=== PATIENT | male | born 1975 | race Caucasian/White ===

== ENCOUNTER 2024-06-07 16:58 | Emergency (ER) | payer SELFPAY ==
[2024-06-07] VITALS (9 sets, daily range): BP systolic 79–144; BP diastolic 36–76; PULSE 100–189; RESP 18–32; TEMP 37.6–37.7; O2SAT 95–98; BMI 25.0
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
--- NOTE | 2024-06-07 17:10 | ECG_ITS ---
APPROVED REPORT Exam: Resting ECG HR:129 bpm ECG Measurements Heart Rate 129 AXES ID 131 P 78 QRSd 96 QRS 75 QT 297 T 85 QTc [address] depression without elevations Electronically signed by : GABRIELA ISABEL, 06/08/2024 14:56:21
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
[2024-06-07] MEDS: 0.9 % SODIUM CHLORIDE 1000ML 1,000 ML 999 ML IV (17:46)
[2024-06-07] MEDS: KETOROLAC 30MG/ML VIAL 15 MG IV (17:46)
--- NOTE | 2024-06-07 18:00 | PC.NURSE ---
FSBS is 218 at 1659.
[2024-06-07 18:05] LABS: Basophils # 0.1 K/mm3 (0-0.2); Basophils % 0.3 % (0.1-2.0); Eosinophils # 0.1 K/mm3 (0.0-0.4); Eosinophils % 0.2 % (0.1-12.0); Hematocrit 33.3 % (42.0-52.0); Hemoglobin 11.3 g/dL (14.1-18.0); Lymphocytes # 0.7 K/mm3 (0.7-4.5); Lymphocytes % 3.4 % (10-50); Mean Corpuscular HGB Conc 33.9 g/dL (31.8-35.4); Mean Corpuscular Hemoglobin 27.3 pg (27.0-31.2); Mean Corpuscular Volume 80.4 fl (80-94); Mean Platelet Volume 10.8 fl (7.4-10.4); Monocytes # 0.3 K/mm3 (0.1-1.0); Monocytes % 1.3 % (1.7-9.3); Neutrophils # 19.1 K/mm3 (1.8-7.8); Neutrophils % 93.5 % (37.0-80.0); Platelet Count 168 K/mm3 (142-424); Red Blood Count 4.14 M/mm3 (4.60-6.20); White Blood Count 20.4 K/mm3 (4.8-10.8)
[2024-06-07 18:07] LABS: VBG HCO3 23.1 mmol/L (23-30); VBG Oxygen Saturation 63.7 % (50-70); VBG PCO2 34.6 mmol/L (35-51); VBG PH 7.44 mmol/L (7.31-7.41); VBG Total CO2 24.2 mmol/L (23-27)
[2024-06-07 18:09] LABS: Lactate Venous 2.9 mmol/L (0.4-2.0)
[2024-06-07] MEDS: IOPAMIDOL-370 (76%);100ML BOTTLE 80 ML IV (18:10)
[2024-06-07] MEDS: 0.9 % SODIUM CHLORIDE 50 ML VIAL IV (18:10)
[2024-06-07 18:11] LABS: MANUAL DIFFERENTIAL MANUAL DIFFERENTIAL (MANUAL DIFF)
[2024-06-07] MEDS: SODIUM CHLORIDE 0.9% 10ML SYR (RAD ONLY) 10 ML IV (18:11)
[2024-06-07 18:12] LABS: Albumin Level 2.8 g/dl (3.5-5.0); Chloride 94 mmol/L (98-107); Potassium 4.2 mmoL/L (3.5-5.1); Sodium 125 mmol/L (136-145)
[2024-06-07 18:14] LABS: Alanine Aminotransferase 49 U/L (12-78); Blood Urea Nitrogen 26 mg/dl (9-20); Creatinine Clearance Estimated 89 mL/min (50-200); Estimated Glomerular Filt Rate 64 ml/min (>60); GFR (African American) 77 ML/MIN (>60)
[2024-06-07 18:15] LABS: Albumin/Globulin Ratio 0.7 (1.1-1.8); Alkaline Phosphatase 115 U/L (38-126); Anion Gap 10.2 mEq/L (5-15); Aspartate Amino Transferase 49 U/L (17-59); Bilirubin,Total 1.5 mg/dl (0.2-1.3); Calcium 8.4 mg/dl (8.4-10.2); Carbon Dioxide 25 mmol/L (22.0-30.0); Globulin 4.3 g/dL (1.3-3.2); Glucose 196 mg/dl (74-100); Lipase 39 U/L (23-300); Magnesium 1.8 mg/dl (1.6-2.3); Total Protein,Serum 7.1 g/dl (6.3-8.2)
[2024-06-07 18:25] LABS: NT Pro Brain Natriuretic Pep. 2340 pg/mL (0-125)
[2024-06-07 18:31] LABS: Troponin I 2.33 ng/ml (0.00-0.034)
[2024-06-07 18:32] LABS: Procalcitonin 3.45 ng/mL (0.0-2.0); T4 (Thyroxine) 10.2 ug/dl (5.53-11.0)
[2024-06-07 18:36] LABS: INR 1.18 (0.9-1.1)
[2024-06-07 18:46] LABS: Thyroid Stimulating Hormone 0.42 uIU/mL (0.465-4.68)
[2024-06-07] MEDS: LACTATED RINGERS 1000ML 2,400 ML 1200 ML IV (18:47)
[2024-06-07 18:55] LABS: Eosinophils % 1 % (0-3); Ethyl Alcohol < 10 mg/dl (0-10); Lymphocytes % 3 % (10-50); Microcytosis 1+; Monocytes % 2 % (2-9); Neutrophils % 94 % (42-76); Platelet Estimate Normal; Total Cells Counted 100
--- NOTE | 2024-06-07 18:59 | PC.NURSE ---
DR ISABEL SPEAKING WITH FOR TRAUMA TRANSFER
--- NOTE | 2024-06-07 19:01 | PC.NURSE ---
AIR METHODS ACCEPTED FLIGHT TO ETA 22 MINUTES
[2024-06-07 19:04] LABS: Coronavirus 19, PCR Not Detected (NotDetected); Influenza A, PCR Not Detected (NotDetected); Influenza B, PCR Not Detected (NotDetected)
[2024-06-07 19:12] LABS: Hemoglobin A1C 6.4 % (4.0-6.0)
[2024-06-07] MEDS: DALBAVANCIN HCL 1,500 MG in DEXTROSE 5 % IN WATER 250 ML 500 MG IV (19:15)
[2024-06-07 19:18] LABS: Lactic Acid 2.4 mmol/L (0.7-2.1)
--- NOTE | 2024-06-07 19:30 | PC.NURSE ---
REPORT GIVEN TO JOHNODS
[2024-06-07] MEDS: ASPIRIN 81MG CHEWABLE TABLET 324 MG PO (19:44)
[2024-06-07 19:47] LABS: Amphetamine/Metha Screen,Urine Negative ng/ml (<1000); Barbiturates Screen,Urine Negative ng/ml (<200)
[2024-06-07 19:48] LABS: Benzodiazepines Screen,Urine Negative ng/ml (<200)
[2024-06-07 19:49] LABS: Cannabinoid Screen,Urine Negative ng/ml (<50); Cocaine Screen,Urine Negative ng/ml (<300)
[2024-06-07 19:50] LABS: Methadone Screen,Urine Negative ng/ml (<300)
[2024-06-07 19:51] LABS: Opiate Screen,Urine Positive ng/ml (<300); Phencyclidine Screen,Urine Negative ng/ml (<25)
[2024-06-07 22:10] LABS: Reflex Lactic Add Lactic Reflex
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
--- NOTE | 2024-06-11 11:05 | PC.NURSE ---
BLOOD CULTURE FAXED TO [phone]
== END 2024-06-07 19:42 | disposition short-term general hospital (02) ==
PROVIDERS: Emergency Provider Emergency Medicine
DX: D73.5 Infarction of spleen (principal); N28.0 Ischemia and infarction of kidney; I63.9 Cerebral infarction, unspecified; A41.9 Sepsis, unspecified organism; I26.90 Septic pulmonary embolism without acute cor pulmonale; R79.89 Other specified abnormal findings of blood chemistry; R07.9 Chest pain, unspecified; R50.9 Fever, unspecified; M79.10 Myalgia, unspecified site; R53.1 Weakness; R10.84 Generalized abdominal pain; R11.0 Nausea; V89.0XXA Person injured in unspecified motor-vehicle accident, nontraffic, initial encounter; Y93.89 Activity, other specified; Y92.89 Other specified places as the place of occurrence of the external cause
CPT/HCPCS: 70450; 71275; 72125; 74174; 80053; 80307; 80320; 82803; 83036; 83605; 83690; 83735; 83880; 84145; 84436; 84443; 84484; 85007; 85025; 85027; 85610; 85730; 87040; 87077; 87186; 87636; 93005; 96361; 96365; 96374; 99291; G0480; J0875; J1885; J7030; J7060; J7120; Q9967

== ENCOUNTER 2024-09-04 15:29 | Emergency (ER) | payer SELFPAY ==
[2024-09-04] VITALS (10 sets, daily range): BP systolic 161–186; BP diastolic 65–107; PULSE 61–95; RESP 11–20; TEMP 36.7–37.2; O2SAT 94–99; BMI 23.0; BMI 31.1
--- NOTE | 2024-09-04 15:39 | ECG_ITS ---
APPROVED REPORT Exam: Resting ECG HR:62 bpm ECG Measurements Heart Rate 62 AXES MS 168 P 62 QRSd 109 QRS 53 QT 249 T 0 QTc 254 Conclusion Sinus rhythm Nonspecific electrical change in V2. No obvious acute ischemic change Electronically signed by : GABRIELA ISABEL, 09/06/2024 12:19:56
[2024-09-04] MEDS: LACTATED RINGERS 1000ML 1,000 ML 999 ML IV (15:40)
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
--- NOTE | 2024-09-04 15:50 | PC.NURSE ---
Manual blood pressure is 154/90.
[2024-09-04 15:52] LABS: VBG Base Excess 1.7 mmol/L (-2.4-2.3); VBG HCO3 26.5 mmol/L (23-30); VBG Oxygen Saturation 86.6 % (50-70); VBG PCO2 43.7 mmol/L (35-51); VBG PO2 46.5 mmol/L (28-40); VBG Total CO2 27.8 mmol/L (23-27)
[2024-09-04 15:56] LABS: Basophils # 0.1 K/mm3 (0-0.2); Basophils % 0.7 % (0.1-2.0); Eosinophils # 0.3 K/mm3 (0.0-0.4); Eosinophils % 3.6 % (0.1-12.0); Hematocrit 42.1 % (42.0-52.0); Hemoglobin 13.6 g/dL (14.1-18.0); Lymphocytes # 1.2 K/mm3 (0.7-4.5); Lymphocytes % 14.8 % (10-50); Mean Corpuscular HGB Conc 32.3 g/dL (31.8-35.4); Mean Corpuscular Hemoglobin 26.7 pg (27.0-31.2); Mean Corpuscular Volume 82.7 fl (80-94); Mean Platelet Volume 9.1 fl (7.4-10.4); Monocytes # 0.4 K/mm3 (0.1-1.0); Monocytes % 4.8 % (1.7-9.3); Neutrophils # 6.1 K/mm3 (1.8-7.8); Neutrophils % 75.7 % (37.0-80.0); Platelet Count 238 K/mm3 (142-424); Red Blood Count 5.09 M/mm3 (4.60-6.20); White Blood Count 8.1 K/mm3 (4.8-10.8)
[2024-09-04 16:03] LABS: Albumin Level 4.2 g/dl (3.5-5.0); Chloride 101 mmol/L (98-107); Sodium 138 mmol/L (136-145)
[2024-09-04 16:04] LABS: Potassium 3.5 mmoL/L (3.5-5.1)
[2024-09-04 16:05] LABS: Activated Partial Thrombo Time 25.8 seconds (22.8-30.6); INR 0.97 (0.9-1.1); Prothrombin Time 10.9 seconds (10.1-12.5)
[2024-09-04 16:06] LABS: Alanine Aminotransferase 17 U/L (12-78); Albumin/Globulin Ratio 1.2 (1.1-1.8); Alkaline Phosphatase 108 U/L (38-126); Anion Gap 10.5 mEq/L (5-15); Aspartate Amino Transferase 35 U/L (17-59); Bilirubin,Total 0.9 mg/dl (0.2-1.3); Blood Urea Nitrogen 7 mg/dl (9-20); Carbon Dioxide 30 mmol/L (22.0-30.0); Estimated Glomerular Filt Rate 102 ml/min (>60); GFR (African American) 123 ML/MIN (>60); Globulin 3.5 g/dL (1.3-3.2); Total Protein,Serum 7.7 g/dl (6.3-8.2)
[2024-09-04 16:07] LABS: Calcium 9.7 mg/dl (8.4-10.2); Glucose 130 mg/dl (74-100)
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
[2024-09-04 16:12] LABS: Ethyl Alcohol < 10 mg/dl (0-10)
[2024-09-04] MEDS: MAGNESIUM SULFATE IN WATER 2 GM/50 ML PIGGYBACK IV (16:21)
[2024-09-04 17:03] LABS: Troponin I < 0.01 ng/ml (0.00-0.034)
[2024-09-04] MEDS: IOPAMIDOL-370 (76%);100ML BOTTLE 160 ML IV (17:25)
[2024-09-04] MEDS: 0.9 % SODIUM CHLORIDE 50 ML VIAL 100 ML IV (17:25)
[2024-09-04] MEDS: SODIUM CHLORIDE 0.9% 10ML SYR (RAD ONLY) 10 ML IV (17:25)
[2024-09-04 18:01] LABS: Microscopic, Urine URINE MICROSCOPIC (MICROSCOPIC)
[2024-09-04 18:08] LABS: Appearance,Urine CLEAR (Clear); Bilirubin,Urine Negative (Negative); Blood, Urine TRACE-L (Negative); Color,Urine YELLOW (Yellow); Glucose,Urine (UA) Negative (Negative); Ketones,Urine Negative (Negative); Leukocyte Esterase,Urine Negative (Negative); Nitrate,Urine Negative (Negative); PH,Urine 7.5 (5.0-8.5); Protein,Urine Negative (Negative)
[2024-09-04 18:25] LABS: Benzodiazepines Screen,Urine Negative ng/ml (<200)
[2024-09-04 18:26] LABS: Amphetamine/Metha Screen,Urine Negative ng/ml (<1000)
[2024-09-04 18:27] LABS: Barbiturates Screen,Urine Negative ng/ml (<200); Cannabinoid Screen,Urine Positive ng/ml (<50)
[2024-09-04 18:28] LABS: Cocaine Screen,Urine Negative ng/ml (<300); Methadone Screen,Urine Positive ng/ml (<300)
[2024-09-04 18:29] LABS: Opiate Screen,Urine Positive ng/ml (<300)
[2024-09-04 18:30] LABS: Phencyclidine Screen,Urine Negative ng/ml (<25)
--- NOTE | 2024-09-04 18:31 | PC.NURSE ---
Calling [facility] for transfer for possible central cord syndrome
--- NOTE | 2024-09-04 18:32 | PC.NURSE ---
Called [facility] per Dr Buckley about transferring this pt due to upper neck and back pain and is concern for Central Cord Syndrome.. [facility] advised that they would call us back
--- NOTE | 2024-09-04 18:51 | PC.NURSE ---
Dr. Buckley is on the phone with .
--- NOTE | 2024-09-04 18:51 | PC.NURSE ---
Collected second trop collected and sent [facility]CS[facility] at bedside
--- NOTE | 2024-09-04 19:27 | PC.NURSE ---
Called report to Sonja Bartholomew RN
[2024-09-04] MEDS: HYDROMORPHONE 2MG/ML SYRINGE 1 MG IV (20:21)
[2024-09-04 20:31] LABS: Troponin I < 0.01 ng/ml (0.00-0.034)
--- NOTE | 2024-09-04 20:51 | PC.NURSE ---
Report called to [facility] by Bess Barragan on day shift.
[2024-09-04 21:26] LABS: Bacteria,Urine Trace /lpf; WBC,Urine Occasional #/hpf (0-3)
--- NOTE | 2024-09-04 22:24 | PC.NURSE ---
Reports sent to [facility]
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
== END 2024-09-04 20:51 | disposition short-term general hospital (02) ==
PROVIDERS: Emergency Provider Emergency Medicine
DX: I47.20 Ventricular tachycardia, unspecified (principal); R29.898 Other symptoms and signs involving the musculoskeletal system; R07.9 Chest pain, unspecified; M54.9 Dorsalgia, unspecified; M54.2 Cervicalgia; R10.9 Unspecified abdominal pain; F11.129 Opioid abuse with intoxication, unspecified; Z72.0 Tobacco use; V49.49XA Driver injured in collision with other motor vehicles in traffic accident, initial encounter; Y93.89 Activity, other specified; Y92.410 Unspecified street and highway as the place of occurrence of the external cause
CPT/HCPCS: 70450; 70496; 70498; 71045; 71275; 72125; 72128; 72131; 72170; 74174; 80053; 80307; 80320; 81001; 82803; 84484; 85025; 85610; 85730; 86850; 93005; 96361; 96365; 96374; 99291; 99292; J1171; J3475; J7120; Q9967